=== PATIENT | female | born 1995 | race Caucasian/White ===

== ENCOUNTER 2017-07-01 18:56 | Outpatient (CLI) | payer OTHER ==
[~2017-07-01] VITALS: Ht 162.6 cm; Wt 76.6 kg
[2017-07-01 19:11] VITALS: BP 126/76
[2017-07-01] MEDS ORDERED: PRENATAL TABLE1 EAC3 PO (20:06)
== END 2017-07-01 21:50 | disposition home or self-care (01) ==
LOC: LDRP-OP 18:56 → 2WEST 18:57 → LDRP-OP 09-05 09:00
DX: Z03.79 Encounter for other suspected maternal and fetal conditions ruled out (principal); W01.0XXA Fall on same level from slipping, tripping and stumbling without subsequent striking against object, initial encounter; Y93.K1 Activity, walking an animal; Z3A.35 35 weeks gestation of pregnancy
CPT/HCPCS: 59025; 85460; G0378

== ENCOUNTER 2017-08-02 01:25 | Outpatient (CLI) | payer OTHER ==
[~2017-08-02] VITALS: Ht 162.6 cm; Wt 78.6 kg
[~2017-08-02 01:25] MED LIST: PRENATAL TABLE1 EAC3 PO
[2017-08-02 01:43] VITALS: BP 132/83
[2017-08-02] MEDS ORDERED: TYLENOL EXTRA500 MG PO (02:29)
[2017-08-02] MEDS ORDERED: UNISOM50 MG PO (02:29)
[2017-08-02 04:43] VITALS: BP 127/79
[2017-08-03] MEDS ORDERED: MOTRIN800 MG PO (13:29)
== END 2017-08-02 05:46 | disposition home or self-care (01) ==
LOC: LDRP-OP 01:25 → 2WEST 01:26 → LDRP-OP 09-05 22:12
DX: O47.1 False labor at or after 37 completed weeks of gestation (principal); Z3A.39 39 weeks gestation of pregnancy
CPT/HCPCS: 59025; G0378

== ENCOUNTER 2017-08-02 17:25 | Inpatient (IN) | payer OTHER ==
[2017-08-02] VITALS (19 sets, daily range): BP systolic 108–137; BP diastolic 61–96
[~2017-08-02] VITALS: Ht 162.6 cm; Wt 78.0 kg
[~2017-08-02 17:25] MED LIST changes: +TYLENOL EXTRA500 MG PO; +UNISOM50 MG PO
[2017-08-02 19:27] LABS: BASOPHIL (%) 0.2 % (0-1); EOSINOPHIL (%) 0.3 % (0-5); HEMATOCRIT 38.6 % (36.0-46.0); HEMOGLOBIN 13.3 G/DL (11.9-15.5); IMMATURE GRANULOCYTE (%) 0.2 % (0.0-0.7); LYMPHOCYTE (%) 16.9 % (15-42); LYMPHOCYTE COUNT 1.5 K/uL (1.0-2.8); MCH 30.1 PG (29.0-34.0); MCHC 34.5 G/DL (30.0-36.0); MCV 87.3 FL (83-99); MONOCYTE (%) 5.6 % (3-12); MONOCYTE COUNT 0.5 K/uL (0-0.8); NEUTROPHIL (%) 76.8 % (45-76); NEUTROPHIL COUNT 6.9 K/uL (1.8-6.4); PLATELET COUNT 188 K/uL (156-360); RBC DIS.WIDTH-CV 13.1 % (11.8-14.6); RBC DIS.WIDTH-SD 41.1 % (39-53); RED BLOOD COUNT 4.42 M/uL (3.80-5.20); WHITE BLOOD COUNT 8.9 K/uL (4.1-10.2)
[2017-08-02 20:30] LABS: AMPHETAMINE NEGATIVE (500 ng/mL); BARBITURATES NEGATIVE (200 ng/mL); BENZODIAZEPINES NEGATIVE (150 ng/mL); BUPRENORPHINE NEGATIVE (10 ng/mL); COCAINE NEGATIVE (150 ng/mL); METHADONE NEGATIVE (200 ng/mL); METHAMPHETAMINE NEGATIVE (500 ng/mL); OPIATES (MORPHINE) NEGATIVE (100 ng/mL); OXYCODONE NEGATIVE (100 ng/mL); PHENCYCLIDINE NEGATIVE (25 ng/mL); PROPOXYPHENE NEGATIVE (300 ng/mL); THC CANNABINOIDS NEGATIVE (50 ng/mL); TRICYCLIC ANTIDEPRESSANTS NEGATIVE (300 ng/mL)
[2017-08-03] VITALS (21 sets, daily range): BP systolic 93–132; BP diastolic 54–85
[2017-08-03] MEDS ORDERED: MOTRIN800 MG PO (13:29)
== END 2017-08-04 07:50 | disposition home or self-care (01) | DRG 775 ==
LOC: LDRP-OP 17:25 → 2WEST 17:26 → LDRP-OP 09-05 05:53
PROVIDERS: Advanced Practice Midwife
DX: O80 Encounter for full-term uncomplicated delivery (principal); Z3A.39 39 weeks gestation of pregnancy; Z37.0 Single live birth
CPT/HCPCS: 59025; 85025; C1755; G0378; J0595; J2405; J3010; J7120